=== PATIENT | female | born 1990 | race Two or more races ===

== ENCOUNTER 2023-10-02 23:11 | Emergency (ER) | payer MEDICAID ==
[~2023-10-02] VITALS: Ht 157.5 cm; Wt 59.0 kg
[2023-10-02] MEDS ORDERED: LORAZEPAM INJ 2 MG/ML VIAL ONE (23:58)
[2023-10-03] MEDS: LORAZEPAM INJ 2 MG/ML VIAL IM ONE (00:02)
[2023-10-03 00:21] VITALS: BP 130/69; TEMP 98.5; O2SAT 100
== END 2023-10-03 00:34 | disposition home or self-care (01) ==
LOC: ER 23:13
DX: F41.0 Panic disorder [episodic paroxysmal anxiety] (principal)
CPT/HCPCS: 99283; 96372; 93005; J2060